=== PATIENT | female | born 1935 | race Caucasian/White ===

== ENCOUNTER 2017-08-15 08:02 | Emergency (ER) | payer MEDICARE, BC ==
[2017-08-15] MEDS ORDERED: Acetaminophen/Codeine 300-30 MG Tab ONE (08:15)
--- NOTE | 2017-08-15 09:12 | EDM.PDOC ---
ED HPI GENERAL MEDICAL PROBLEM - General Chief Complaint: Back Pain or Injury Stated Complaint: Back Pain Time Seen by Provider: 08/15/17 08:30 Source of Information: Reports: Patient History Limitations: Reports: No Limitations - History of Present Illness INITIAL COMMENTS - FREE TEXT/NARRATIVE: Pt is81 years old from [place], who has summer home here in [place]. According to patient she was lifting and moving chair and tables around the house with the help of her sister and towards evening started to feel pain in her right lower back. Pain is in a localized spot over the back. some time get pain in the groin. She can walk with out discomfort, but hurts when she twists or turns to left side. When she woke up today her pain has got worse. No weakness, tingling or numbness in the lower extremities. No fall or bruising. No other complaints. Onset Date: 08/14/17 Onset Time: 18:00 Location: Reports: Back Quality: Reports: Ache Severity: Moderate Improves with: Reports: None Worsens with: Reports: None Associated Symptoms: Denies: Confusion, Chest Pain, Cough, Diaphoresis, Fever/ Chills, Headaches, Nausea/Vomiting, Rash, Seizure, Shortness of Breath, Syncope , Weakness ED ROS GENERAL - Review of Systems Review Of Systems: See Below Constitutional: Denies: Fever, Chills, Malaise, Weakness HEENT: Denies: Rhinitis, Sinus Problem, Throat Pain, Throat Swelling Respiratory: Denies: Cough, Sputum Cardiovascular: Denies: Chest Pain, Lightheadedness GI/Abdominal: Denies: Abdominal Pain, Nausea, Vomiting : Denies: Dysuria, Flank Pain Musculoskeletal: Reports: Back Pain. Denies: Joint Pain, Joint Swelling Skin: Denies: Bruising, Pruritis, Rash, Erythema Neurological: Denies: Confusion, Dizziness, Headache, Numbness, Tingling, Weakness ED EXAM, GENERAL - Physical Exam Exam: See Below Exam Limited By: No Limitations General Appearance: Alert, WD/WN, No Apparent Distress Ears: Normal External Exam, Normal Canal, Hearing Grossly Normal, Normal TMs Ear Exam: Bilateral Ear: Auricle Normal, Canal Normal, TM normal Nose: Normal Inspection, Normal Mucosa, No Blood Throat/Mouth: Normal Inspection, Normal Lips, Normal Teeth, Normal Gums, Normal Oropharynx, Normal Voice, No Airway Compromise Head: Atraumatic, Normocephalic Neck: Normal Inspection, Supple, Non-Tender, Full Range of Motion Respiratory/Chest: No Respiratory Distress, Lungs Clear, Normal Breath Sounds, No Accessory Muscle Use, Chest Non-Tender Cardiovascular: Normal Peripheral Pulses, Regular Rate, Rhythm, No Edema, No Gallop, No JVD, No Murmur, No Rub GI/Abdominal: Normal Bowel Sounds, Soft, Non-Tender, No Organomegaly, No Distention, No Abnormal Bruit, No Mass Back Exam: Normal Inspection, Muscle Spasm (Left buttock), Other (Tenderness mild-moderate over the right SI joint.). No: CVA Tenderness (R), CVA Tenderness (L), Paraspinal Tenderness, Vertebral Tenderness Course - Vital Signs Text/Narrative:: Pt and her sister reassured that patient has strained her right SI joint from all the lifting and twisting activities yesterday. I have advised to alternate tylenol 500mg with motrin 400mg every 4 hrs for pain control. Intermittent heat to the right lower back 3-4 times daily. Avoid twisting and turning activities of the lower back. Pt requesting something strong for her travel( pt does not drive). I have given tylenol with codeine to take only at bedtime and while travelling in the car. Advised to followup with her primary care provider when back home. Departure - Departure Time of Disposition: 09:00 Disposition: Home, Self-Care 01 Condition: Fair Clinical Impression: Sacroiliac strain - Discharge Information Instructions: Sacroiliac Joint Dysfunction, Back Pain, Adult, [id number] Referrals: PCP,None [Primary Care Provider] - Forms: ED Department Discharge Additional Instructions: Pt and her sister reassured that patient has strained her right SI joint from all the lifting and twisting activities yesterday. I have advised to alternate tylenol 500mg with motrin 400mg every 4 hrs for pain control. Intermittent heat to the right lower back 3-4 times daily. Avoid twisting and turning activities of the lower back. Pt requesting something strong for her travel( pt does not drive). I have given tylenol with codeine to take only at bedtime and while travelling in the car. Advised to followup with her primary care provider when back home. - Problem List & Annotations (1) Sacroiliac strain SNOMED Code(s): 887549680 Code(s): S39.012A - STRAIN OF MUSCLE, FASCIA AND TENDON OF LOWER BACK, INIT Status: Acute Current Visit: Yes - Problem List Review Problem List Initiated/Reviewed/Updated: Yes - Assessment/Plan Assessment:: Right sacroiliac strain Plan: Pt and her sister reassured that patient has strained her right SI joint from all the lifting and twisting activities yesterday. I have advised to alternate tylenol 500mg with motrin 400mg every 4 hrs for pain control. Intermittent heat to the right lower back 3-4 times daily. Avoid twisting and turning activities of the lower back. Pt requesting something strong for her travel( pt does not drive). I have given tylenol with codeine to take only at bedtime and while travelling in the car. Advised to followup with her primary care provider when back home.
== END 2017-08-15 09:24 | disposition home or self-care (01) ==
LOC: LB.ED 08:02
DX: S39.012A Strain of muscle, fascia and tendon of lower back, initial encounter (principal); X50.0XXA Overexertion from strenuous movement or load, initial encounter
CPT/HCPCS: 99283; A9270